=== PATIENT | male | born 1955 | race Caucasian/White ===

== ENCOUNTER 2021-11-30 02:19 | Emergency (ER) | payer OTHER ==
[2021-11-30 03:37] LABS: POTASSIUM,K 3.5 mmol/L (3.5-5.1)
[2021-11-30] MEDS ORDERED: Acetaminophen 500 MG Tab PO ONE (03:52)
== END 2021-11-30 04:13 | disposition home or self-care (01) ==
LOC: MW.ED 02:19
DX: Z57.5 Occupational exposure to toxic agents in other industries (principal); R53.83 Other fatigue
CPT/HCPCS: 36415; 71045; 80053; 84484; 85025; 93005; 99284; A9270